=== PATIENT | female | born 2000 | race Caucasian/White ===

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

== ENCOUNTER 2019-06-25 12:29 | Emergency (ER) | payer BC ==
[2019-06-25 12:51] VITALS: BP 123/52
[2019-06-25] MEDS ORDERED: Albuterol 2.5 MG/3 ML NEB.SOL* (0.083%) INH ONE (13:02)
--- NOTE | 2019-06-25 13:15 | UC ---
Respiratory Complaint HPI - HPI Summary HPI Summary: Pt presents with c/o cough, nasal and chest congestion, wheezing and malaise X 3 days. Pt has hx of asthma and has been using albuterol INH as needed. Pt has requested nebulizer treatment at - History of Current Complaint Chief Complaint: UCGeneralIllness Stated Complaint: COUGH,CONGESTION,WHEEZY,FEVER Time Seen by Provider: 06/25/19 12:52 Hx Obtained From: Patient Hx Last Menstrual Period: 06/18/19 ?: No Onset/Duration: Gradual Onset, Lasting Days, Still Present Timing: Constant Severity Initially: Mild Severity Currently: Mild Pain Intensity: 4 Character: Cough: Nonproductive Aggravating Factors: Exertion, Deep Breaths, Recumbent Position Alleviating Factors: Bronchodilator Associated Signs And Symptoms: Positive: Wheezing, Nasal Congestion Related History: Seasonal Allergies - Risk Factors Pulmonary Embolism Risk Factors: Negative Cardiac Risk Factors: Negative Pseudomonas Risk Factors: Negative Tuberculosis Risk Factors: Negative - Allergies/Home Medications Allergies/Adverse Reactions: Allergies Allergy/AdvReac Type Severity Reaction Status Date / Time No Known Allergies Allergy Verified 06/25/19 12:51 PMH/Surg Hx/FS Hx/Imm Hx Previously Healthy: Yes - Surgical History Surgical History: Yes Surgery Procedure, Year, and Place: T&A - Family History Known Family History: Positive: Hypertension, Other - Crohn's disease - Social History Occupation: Student - [employer] Lives: Dormitory/Roommates Alcohol Use: Weekly Substance Use Type: None Smoking Status (MU): Never Smoked Tobacco Have You Smoked in the Last Year: No - Immunization History Hx Tetanus, Diphtheria Vaccination: Yes Vaccination Up to Date: Yes Review of Systems All Other Systems Reviewed And Are Negative: Yes Constitutional: Positive: Chills, Fatigue Skin: Positive: Negative Eyes: Positive: Negative ENT: Positive: Sore Throat, Sinus Congestion Respiratory: Positive: Shortness Of Breath, Cough Cardiovascular: Positive: Negative Gastrointestinal: Positive: Negative Genitourinary: Positive: Negative Motor: Positive: Negative Neurovascular: Positive: Negative Musculoskeletal: Positive: Myalgia Neurological: Positive: Negative Psychological: Positive: Negative Is Patient Immunocompromised?: No Physical Exam Triage Information Reviewed: Yes Appearance: Ill-Appearing Vital Signs: Initial Vital Signs Temp 98.6 F 06/25/19 12:46 Pulse 80 06/25/19 12:46 Resp 16 06/25/19 12:46 BP 123/52 06/25/19 12:46 Pulse Ox 100 06/25/19 12:46 Vital Signs Reviewed: Yes Eye Exam: Normal ENT: Positive: Nasal congestion Dental Exam: Normal Neck exam: Normal Respiratory: Positive: Wheezing Cardiovascular Exam: Normal Musculoskeletal Exam: Normal Neurological Exam: Normal Psychological Exam: Normal Skin Exam: Normal Respiratory Course/Dx - Differential Dx/Diagnosis Differential Diagnosis/HQI/PQRI: Bronchitis Provider Diagnosis: Exacerbation of asthma, Cough Discharge ED - Sign-Out/Discharge Documenting (check all that apply): Patient Departure All imaging exams completed and their final reports reviewed: No Studies - Discharge Plan Condition: Stable Disposition: HOME Prescriptions: Cetirizine* [ZyrTEC 10 MG TAB*] 10 mg PO DAILY #10 tab predniSONE TAB* [Deltasone 10 MG TAB*] 30 mg PO DAILY #12 tab Patient Education Materials: Reactive Airways Disease (ED) Referrals: No Primary Care Phys,NOPCP [Primary Care Provider] - [facility] [place]] - If Needed - Billing Disposition and Condition Condition: STABLE Disposition: Home
== END 2019-06-25 13:27 | disposition home or self-care (01) ==
LOC: UCCORT 12:29
DX: J45.901 Unspecified asthma with (acute) exacerbation (principal); R05 Cough; R53.81 Other malaise; R09.81 Nasal congestion; M79.10 Myalgia, unspecified site
CPT/HCPCS: 99212; G0463

== ENCOUNTER 2019-10-13 12:02 | Emergency (ER) | payer BC ==
[2019-10-13 12:43] VITALS: BP 134/80
--- NOTE | 2019-10-13 12:46 | UC ---
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 She has not used her albuterol inhaler. She started having some mild upper respiratory symptoms on Wednesday of this past week but today more wheezing. She states that she usually has a short course of prednisone and that resolves the symptoms. She denies any fever or chills. - History of Current Complaint Chief Complaint: UCGeneralIllness Stated Complaint: COUGH,CONGESTION Time Seen by Provider: 10/13/19 12:46 Hx Obtained From: Patient Hx Last Menstrual Period: 10/05/19 ?: No Onset/Duration: Gradual Onset, Lasting Days Timing: Constant Severity Initially: Mild Severity Currently: Mild Pain Intensity: 0 Character: Cough: Nonproductive Aggravating Factors: Deep Breaths Alleviating Factors: Other - Patient has not used her albuterol inhaler today. Associated Signs And Symptoms: Positive: Wheezing, URI, Nasal Congestion Related History: Seasonal Allergies - Allergies/Home Medications Allergies/Adverse Reactions: Allergies Allergy/AdvReac Type Severity Reaction Status Date / Time No Known Allergies Allergy Verified 10/13/19 12:44 Home Medications: Home Medications Albuterol HFA INHALER* [Ventolin HFA Inhaler*] 2 puff INH Q4H PRN 04/08/18 [ History Confirmed 10/13/19] Levothyroxine TAB* [Synthroid 100 MCG TAB*] 100 mcg PO DAILY 04/08/18 [History Confirmed 10/13/19] predniSONE 20 mg TAB [Deltasone 20 MG TAB*] 40 mg PO DAILY 5 Days #10 tab [Rx] PMH/Surg Hx/FS Hx/Imm Hx Previously Healthy: Yes Endocrine History: Thyroid Disease Cardiovascular History: Other - Heart murmur Respiratory History: Asthma - Surgical History Surgical History: Yes Surgery Procedure, Year, and Place: &A-2018 - Family History Known Family History: Positive: Hypertension, Other - Crohn's disease - Social History Occupation: Student Lives: Dormitory/Roommates Alcohol Use: Weekly Substance Use Type: None Smoking Status (MU): Never Smoked Tobacco Have You Smoked in the Last Year: No - Immunization History Hx Tetanus, Diphtheria Vaccination: Yes Vaccination Up to Date: Yes Review of Systems All Other Systems Reviewed And Are Negative: Yes Respiratory: Positive: Cough, Other - Tight cough with wheezing this morning. Patient did not use her albuterol inhaler instead she came here. Is Patient Immunocompromised?: No Physical Exam Triage Information Reviewed: Yes Appearance: No Pain Distress, Well-Nourished Vital Signs: Initial Vital Signs Temp 99.2 F 10/13/19 12:40 Pulse 82 10/13/19 12:40 Resp 14 10/13/19 12:40 BP 134/80 10/13/19 12:40 Pulse Ox 99 10/13/19 12:40 Vital Signs Reviewed: Yes Eyes: Positive: Conjunctiva Clear ENT: Positive: Pharynx normal, TMs normal, Uvula midline Neck: Positive: Supple, Nontender, No Lymphadenopathy Respiratory: Positive: No respiratory distress, No accessory muscle use, Wheezing - Very mild wheeze with forced expiration but with good air movement throughout. No distress. Cardiovascular: Positive: RRR, No Murmur, Pulses Normal, Brisk Capillary Refill Musculoskeletal Exam: Normal Neurological Exam: Normal Psychological Exam: Normal Skin Exam: Normal Respiratory Course/Dx - Course Course Of Treatment: The patient is comfortable here and in no distress. It was stressed to her that she may only need the albuterol inhaler 2 puffs every 4-6 hours however I did give her a short prescription of prednisone to use if she needs it. She will be traveling to [place] in the next few days. - Differential Dx/Diagnosis Provider Diagnosis: Bronchitis Discharge ED - Sign-Out/Discharge Documenting (check all that apply): Patient Departure All imaging exams completed and their final reports reviewed: No Studies - Discharge Plan Condition: Good Disposition: HOME Prescriptions: predniSONE 20 mg TAB [Deltasone 20 MG TAB*] 40 mg PO DAILY 5 Days #10 tab Patient Education Materials: Acute Bronchitis (ED) Referrals: No Primary Care Phys,NOPCP [Primary Care Provider] - CONSUELO SAUNDERS [[facility], [facility], OTHER] - Additional Instructions: Increase fluids, use your albuterol inhaler 2 puffs every 4-6 hours as needed for wheezing. Take the prednisone with food. Definite follow-up with your primary care provider or an urgent care clinic if you have no improvement in 2- 3 days. Go to an emergency room if you have any worsening symptoms and difficulty breathing. - Billing Disposition and Condition Condition: GOOD Disposition: Home
== END 2019-10-13 13:08 | disposition home or self-care (01) ==
LOC: UCCORT 12:02
DX: J40 Bronchitis, not specified as acute or chronic (principal); J45.909 Unspecified asthma, uncomplicated; E07.9 Disorder of thyroid, unspecified; Z79.890 Hormone replacement therapy; Z79.899 Other long term (current) drug therapy
CPT/HCPCS: 99212; G0463